=== PATIENT | female | born 1980 | race Hispanic/Latino ===

== ENCOUNTER 2020-10-27 03:48 | Emergency (ER) | payer SELFPAY ==
[~2020-10-27] VITALS: Ht 152.4 cm; Wt 63.5 kg
[2020-10-27] MEDS ORDERED: THERAFLU NIGHT1 EAC5 PO (04:33)
== END 2020-10-27 04:55 | disposition home or self-care (01) ==
LOC: FSED 04:30
DX: R06.02 Shortness of breath (principal); R53.83 Other fatigue; Z71.89 Other specified counseling
CPT/HCPCS: 99282